=== PATIENT | male | born 1990 | race Caucasian/White ===

== ENCOUNTER 2023-10-03 12:18 | Emergency (ER) | payer OTHER, SELFPAY ==
[2023-10-03 12:20] VITALS: BP 172/106
--- NOTE | 2023-10-03 14:09 | ED.GENMED ---
History of Present Illness
General
Chief Complaint: Musculo-Skeletal Complaint
Time Seen by Provider: 10/03/23 12:30
Travel History
Have you had any contact with someone who has COVID-19?: No
Do you have any symptoms of coronavirus? Fever > 100 degrees, chills, cough, shortness of breath, sore throat, loss of taste or smell, muscle aches, or headache?: No
History of Present Illness
History of Present Illness:
32-year-old male presents to the emergency department for evaluation of left anterior knee pain ongoing for the past several days. 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 States pain is worse in the morning and
gets better throughout the day. Does not take any medication for pain today.
Past History
Past History
ED Past Medical History: None
ED Past Surgical History: None
Social History
Tobacco: Non-smoker
Alcohol: None
Drug: None
Personal: Single
Living: alone
Employment: Employed
Review of Systems
Review of Systems
Allergies reviewed?: Yes
All Other Systems: ROS reviewed and negative except as documented in HPI and ROS
Phy Exam
Physical Exam
Physical Exam:
GEN: Well appearing, NAD, WDWN
HEENT: Oral mucosa moist, no scleral icterus
Cardiac: Regular rate
Lung: No respiratory distress, no tachypnea
MSK: Mild soft tissue swelling of the left anterior knee adjacent to the patellar tendon. There is focal tenderness along the patellar tendon. Left knee range of motion is normal with pain elicited throughout resisted extension and forced flexion,
no joint effusion
Skin: Good color, no pallor or jaundice, no rashes
Neuro: AO x3, moves all extremities freely
Psych: Calm, cooperative
Course
Orders/Labs/Results
Orders:
Orders
10/03/23 12:53
CR Knee - Left 4 Or More View* Urgent
Comment:
Reason For Exam: injury
Vital Signs
Initial and Last Documented VS:
Initial Vital Signs
Temp Pulse Resp BP Pulse Ox
97.9 F 95 16 172/106 96
10/03/23 12:20 10/03/23 12:20 10/03/23 12:20 10/03/23 12:20 10/03/23 12:20
Last Documented Vital Signs
Temp Pulse Resp BP Pulse Ox
97.9 F 95 16 172/106 96
10/03/23 12:20 10/03/23 12:20 10/03/23 12:20 10/03/23 12:20 10/03/23 12:20
MDM/Problems Addressed
MDM/Problems Addressed:
Clinical picture compatible with patellar tendinitis. Recommend patellar tendon strap and high-dose NSAIDs, outpatient orthopedic follow-up if symptoms persist
*Critical Care Note
Total Time (30-74mins, 75-104mins- exclusive of procedures): Not Applicable
ED Attending Note
-
Portions of this chart may have been created with voice recognition software.� Occasional wrong word or��sound alike� substitutions may have occurred due to the inherent limitations of voice recognition software.
Discharge Plan
Departure
Patient Disposition: Home (Routine Discharge)
Date of Disposition: 10/03/23
Time of Disposition: 14:09
Patient with high blood pressure during this ER visit?: No
Discharge Problem:
Patellar tendinitis of left knee
Instructions: Patellar Tendinopathy (DC)
Prescriptions:
New
diclofenac sodium 75 mg tablet,delayed release (DR/EC)
75 mg PO BID PRN (Reason: Pain) Qty: 20 0RF
No Action
Apple Cider Vinegar 450 MG Tab
450 mg PO DAILY
Ashwagandha Root Extract 800 MG Tab
800 mg PO DAILY
multivitamin 1 EACH tablet
1 tab PO DAILY
garlic 1,000 MG capsule
1,000 mg PO DAILY
diclofenac sodium 75 MG tablet,delayed release (DR/EC)
75 mg PO PRN PRN (Reason: pain)
cranberry 500 MG capsule
500 mg PO DAILY
cholecalciferol (vitamin D3) 2,000 UNITS tablet
2,000 units PO DAILY
krill oil 500 MG capsule
500 mg PO DAILY
shawcivhmxk-K7-Wmslsgdhm serr 1 EACH tablet
2 ea PO DAILY
L.acidoph, paracasei,B. lactis 1 EACH capsule
1 ea PO DAILY
elderberry fruit and flower 1 EACH capsule
1 ea PO DAILY
Beet Root 1,000 MG Tab
1,000 mg PO DAILY
Calcium Carb/Mag Ox/Zinc Sulf [Xfd-Blz-Uagt 334-134-5 Mg Tab] 1 EACH Tablet
1 ea PO DAILY
Cbd
2 tab PO DAILY
Patient Comments:
CHEW
Detox Cap 1 CAPSULE Capsule
2 cap PO DAILY
Turmeric Root/Caitlin Root Ext [Turmeric Curcumin-Caitlin Gummy] 1 EACH Tab.Chew
1 ea PO DAILY
albuterol sulfate 1 PUFF HFA aerosol inhaler
2 puff inhalation PRN PRN (Reason: SOB)
Referrals:
Pramod Lara MD [Active] - Follow up in 1 week
Shonna العلي PA [Family Provider] -
Activity Restrictions/Additional Instructions:
Purchase an over the counter 'patellar strap' to use when working
Ice often particularly after work
Interventions
Interventions:
*Risk Screen - Suicide Last Done: 10/03/23 12:20
*General Assessment Last Done: 10/03/23 12:20
*Neglect/Abuse Screening Last Done: 10/03/23 12:20
ED- Fall Risk Assessment Last Done: 10/03/23 14:33
*ED COVID-19 Vaccine History Last Done: 10/03/23 12:20
*Nursing Disposition Last Done: 10/03/23 14:33
ED-Musculoskeletal Assessment Last Done: 10/03/23 14:32
Discharge Date and Time
Discharge Date/Time: 10/03/23 14:34
Print Language: CANADIAN
== END 2023-10-03 14:34 | disposition home or self-care (01) ==
LOC: EMR 12:18
PROVIDERS: EMERGENCY PHYSICIAN Emergency Medicine; FAMILY PHYSICIAN Physician Assistant Medical
DX: M76.52 Patellar tendinitis, left knee (principal)
CPT/HCPCS: 99283; 73564

== ENCOUNTER 2024-09-01 19:29 | Emergency (ER) | payer OTHER, SELFPAY ==
[2024-09-01 19:31] VITALS: BP 163/99
--- NOTE | 2024-09-01 21:06 | ED.SKININJ ---
HPI-Injury
General
Chief Complaint: Skin Surface Trauma
Source: patient and family
Exam Limitations: none
Time Seen by Provider: 09/01/24 20:38
Nursing documentation reviewed up to this point in time: agreed with
History of Present Illness-Injury
Initial Injury comments:
33-year-old male presents with a skin flap laceration to the medial side of the left thumb. He states he got it caught in a garage door tract. Last tetanus shot was 2022. Denies any other injury.
Past History
Past History
ED Past Medical History: None
ED Past Surgical History: None
Social History
Tobacco: Non-smoker
Alcohol: None
Drug: None
Personal: Single
Living: alone
Employment: Employed
Review of Systems
Review of Systems
Allergies reviewed?: Yes
All Other Systems: ROS reviewed and negative except as documented in HPI and ROS
Skin: Reports other (Thumb laceration)
Psychiatric: Reports anxiety
Phy Exam
General Physical Exam
General Presentation: well appearing and no apparent distress
General age: appears stated age
General Skin: warm and dry
General Mental: alert
ENT Exam
ENT Exam: EOMI and neck supple
Neurological Exam
Neurological Exam: alert and oriented x3
Musculoskeletal Exam
Musculoskeletal Exam: full ROM
Skin Exam
Skin Exam: laceration
Psychiatric Exam
Psychiatric Exam: normal mood/affect and anxious
Course
Orders/Labs/Results
Orders:
Orders
09/01/24 21:08
Hand, Left 3 View [CR Hand - Left Min 3 Views] Urgent
Comment:
Reason For Exam: possible fb
09/01/24 21:47
Cephalexin Monohydrate [Keflex] 500 mg PO NOW STA
Vital Signs
Initial and Last Documented VS:
Initial Vital Signs
Temp Pulse Resp BP Pulse Ox
98.3 F 81 18 163/99 98
09/01/24 19:31 09/01/24 19:31 09/01/24 19:31 09/01/24 19:31 09/01/24 19:31
Last Documented Vital Signs
Temp Pulse Resp BP Pulse Ox
98.2 F 76 17 152/87 97
09/01/24 22:16 09/01/24 22:16 09/01/24 22:16 09/01/24 22:16 09/01/24 22:16
Procedures
Laceration Closure
Left Thumb:
Status of Wound: dirty
Size of Wound in cm: 4
Description of Wound Edges: flap-poorly vascularized and macerated
Preparation: cleaned with soap & water
Anesthesia: 1% Lidocaine
Revision/Debridement: routine- no revision and irrigate-direct pressure
Wound exploration: extensive cleaning of contaminated wound, explored to base- no FB, all visible FB removed and no tendon involvement
Type of Closure: single layer closure
Skin Closure Material: 5-0 nylon
Number of sutures: 8
Additional information:
steri strips applied.
copious irrigation to wound
*Critical Care Note
Total Time (30-74mins, 75-104mins- exclusive of procedures): Not Applicable
ED Attending Note
-
Portions of this chart may have been created with voice recognition software.� Occasional wrong word or��sound alike� substitutions may have occurred due to the inherent limitations of voice recognition software.
Discharge Plan
Departure
Patient Disposition: Home (Routine Discharge)
Date of Disposition: 09/01/24
Time of Disposition: 21:49
Patient with high blood pressure during this ER visit?: No
Condition: Good
Discharge Problem:
Laceration of thumb
Instructions: Wound Care (DC), Laceration Repair With Stitches (DC), BLOOD PRESSURE
Prescriptions:
New
cephalexin 500 mg capsule
500 mg PO QID 10 Days Qty: 40 0RF
No Action
Apple Cider Vinegar 450 MG Tab
450 mg PO DAILY
Ashwagandha Root Extract 800 MG Tab
800 mg PO DAILY
multivitamin 1 EACH tablet
1 tab PO DAILY
garlic 1,000 MG capsule
1,000 mg PO DAILY
diclofenac sodium 75 MG tablet,delayed release (DR/EC)
75 mg PO PRN PRN (Reason: pain)
cranberry 500 MG capsule
500 mg PO DAILY
cholecalciferol (vitamin D3) 2,000 UNITS tablet
2,000 units PO DAILY
krill oil 500 MG capsule
500 mg PO DAILY
beinxdprjak-Z4-Fijzgimbz serr 1 EACH tablet
2 ea PO DAILY
L.acidoph,paracasei,B.animalis 1 EACH capsule
1 ea PO DAILY
elderberry fruit and flower 1 EACH capsule
1 ea PO DAILY
Beet Root 1,000 MG Tab
1,000 mg PO DAILY
Calcium Carb/Mag Ox/Zinc Sulf [Gmd-Xkl-Sfvp 334-134-5 Mg Tab] 1 EACH Tablet
1 ea PO DAILY
Cbd
2 tab PO DAILY
Patient Comments:
CHEW
Detox Cap 1 CAPSULE Capsule
2 cap PO DAILY
Turmeric Root/Caitlin Root Ext [Turmeric Curcumin-Caitlin Gummy] 1 EACH Tab.Chew
1 ea PO DAILY
albuterol sulfate 1 PUFF HFA aerosol inhaler
2 puff inhalation PRN PRN (Reason: SOB)
diclofenac sodium 75 mg tablet,delayed release (DR/EC)
75 mg PO BID PRN (Reason: Pain) Qty: 20 0RF
Referrals:
[facility] [Outside]
Augustin Valdez MD [Active] -
Activity Restrictions/Additional Instructions:
Your prescriptions were sent electronically to the pharmacy that you specified. ([facility])
Your tetanus is up to date. Our records show it was last updated 2 years ago in 2022
Sutures should be removed in 5 to 7 days.
Thank You for choosing [facility].
It was a pleasure meeting you and taking part in your care. We hope for your continued healing and wellness.
Please read discharge instructions in their entirety. However, they are for general education and may not describe your exact diagnosis at discharge. Information on your ER visit and medical conditions were discussed with you along with appropriate
follow up information...
If indicated, please take your medications as instructed and indicated on discharge paperwork.
Please schedule a follow up appointment as directed. Call to schedule an appointment
Please return to the emergency department with ANY change in, persisting, or worsening of symptoms. If any of your symptoms do not improve, or persist, or become more severe within 6-12 hours, please return to the emergency department for further
care.
Please return to the emergency department if you develop a headache, neck pain/stiffness, fever greater than 100.4F, chest pain, shortness of breath, persistent nausea, vomiting, slurred speech, difficulty walking, numbness/tingling, weakness, signs
of infection or any other symptoms that are worrisome to you.
If you have any questions or concerns please do not hesitate to call the Hospital at or E-mail me directly at [email or web address]
Interventions
Interventions:
*Risk Screen - Suicide Last Done: 09/01/24 19:31
*General Assessment Last Done: 09/01/24 19:31
*Neglect/Abuse Screening Last Done: 09/01/24 22:16
*ED- Fall Risk Assessment Last Done: 09/01/24 22:16
*ED COVID-19 Vaccine History Last Done: 09/01/24 19:31
*Nursing Disposition Last Done: 09/01/24 22:16
ED-Skin Assessment Last Done: 09/01/24 20:23
Discharge Date and Time
Discharge Date/Time: 09/01/24 22:19
Print Language: MACEDONIAN
[2024-09-01] MEDS: KEFLEX 500 MG PO (22:15)
[2024-09-01 22:16] VITALS: BP 152/87
== END 2024-09-01 22:19 | disposition home or self-care (01) ==
LOC: EMR 19:29
PROVIDERS: EMERGENCY PHYSICIAN Student in an Organized Health Care Education/Training Program
DX: S61.022A Laceration with foreign body of left thumb without damage to nail, initial encounter (principal); W23.0XXA Caught, crushed, jammed, or pinched between moving objects, initial encounter; J45.909 Unspecified asthma, uncomplicated
CPT/HCPCS: 12042; 99283; 73130

== ENCOUNTER 2024-09-14 17:27 | Emergency (ER) | payer OTHER, SELFPAY ==
[2024-09-14 17:36] VITALS: BP 138/93
[2024-09-14] MEDS: KEFLEX 500 MG PO (18:12)
--- NOTE | 2024-09-14 19:18 | ED.GENMED ---
History of Present Illness
General
Chief Complaint: Wound Check/Suture Removal
Source: patient
Exam Limitations: none
Time Seen by Provider: 09/14/24 17:53
Nursing documentation reviewed up to this point in time: agreed with
History of Present Illness
History of Present Illness:
Patient to ED for eval of left thumb. He was seen in [facility] 09/01 for laceration repair to thumb. He states that the laceration site became swelling and sutures tore thru skin edge so he removed them. Now wound is swollen and gaping. NO discharge.
NO erythema. Here for wound check.
Past History
Past History
ED Past Medical History: None
ED Past Surgical History: None
Social History
Tobacco: Non-smoker
Alcohol: None
Drug: None
Personal: Single
Living: alone
Employment: Employed
Review of Systems
Review of Systems
Allergies reviewed?: Yes
All Other Systems: ROS reviewed and negative except as documented in HPI and ROS
Constitutional: Reports no symptoms
Musculoskeletal: Reports no symptoms
Skin: Reports other (wound dehiscence left distal thumb sutured laceration)
Neurological: Reports no symptoms
Psychiatric: Reports no symptoms
Phy Exam
General Physical Exam
General Presentation: well appearing and no apparent distress
General age: appears stated age
General Skin: warm and dry
General Habitus: normal
General Mental: alert
Musculoskeletal Exam
Musculoskeletal Exam: full ROM and neuro vasc intact
Skin Exam
Skin Exam: normal color, warm/dry, no rash and other (wound dehisence left distal sutured laceration. No redness or discharge. +swelling. No pain. Neurovasc. intact. Continue daily wound care, placed on keflex prophylactially)
Psychiatric Exam
Psychiatric Exam: normal mood/affect
Course
Orders/Labs/Results
Orders:
Orders
09/14/24 17:57
Cephalexin Monohydrate [Keflex] 500 mg PO NOW STA
Vital Signs
Initial and Last Documented VS:
Initial Vital Signs
Temp Pulse Resp BP Pulse Ox
98.5 F 75 16 138/93 98
09/14/24 17:36 09/14/24 17:36 09/14/24 17:36 09/14/24 17:36 09/14/24 17:36
Last Documented Vital Signs
Temp Pulse Resp BP Pulse Ox
98.5 F 75 16 138/93 98
09/14/24 17:36 09/14/24 17:36 09/14/24 17:36 09/14/24 17:36 09/14/24 17:36
*Critical Care Note
Total Time (30-74mins, 75-104mins- exclusive of procedures): Not Applicable
Update Note
Update Note:
Patient to ED for eval of wound dehiscence left distal thumb. Sutures placed on 09/01 but he states the skin edges tore away from sutures. He removed the sutures on own. Presnets today with swelling to wound site. No redeness or discharge. Will
continue daily wound care and continue to observe. Follow up with PCP. Placed on Keflex prophylactically. Given instructions on s/s to return to ED and he is agreeable to plan.
ED Attending Note
-
Portions of this chart may have been created with voice recognition software.� Occasional wrong word or��sound alike� substitutions may have occurred due to the inherent limitations of voice recognition software.
Discharge Plan
Departure
Patient Disposition: Home (Routine Discharge)
Date of Disposition: 09/14/24
Time of Disposition: 17:58
Patient with high blood pressure during this ER visit?: No
Condition: Good
Covid-19: Not Applicable
Discharge Problem:
Dehiscence of laceration wound
Instructions: Wound Care (DC), Wound Dehiscence (DC)
Prescriptions:
New
cephalexin 500 mg capsule
500 mg PO BID 10 Days Qty: 20 0RF
No Action
Apple Cider Vinegar 450 MG Tab
450 mg PO DAILY
Ashwagandha Root Extract 800 MG Tab
800 mg PO DAILY
multivitamin 1 EACH tablet
1 tab PO DAILY
garlic 1,000 MG capsule
1,000 mg PO DAILY
diclofenac sodium 75 MG tablet,delayed release (DR/EC)
75 mg PO PRN PRN (Reason: pain)
cranberry 500 MG capsule
500 mg PO DAILY
cholecalciferol (vitamin D3) 2,000 UNITS tablet
2,000 units PO DAILY
krill oil 500 MG capsule
500 mg PO DAILY
lvdditoplgi-A3-Yrqztjdor serr 1 EACH tablet
2 ea PO DAILY
L.acidoph,paracasei,B.animalis 1 EACH capsule
1 ea PO DAILY
elderberry fruit and flower 1 EACH capsule
1 ea PO DAILY
Beet Root 1,000 MG Tab
1,000 mg PO DAILY
Calcium Carb/Mag Ox/Zinc Sulf [Ogh-Utt-Bark 334-134-5 Mg Tab] 1 EACH Tablet
1 ea PO DAILY
Cbd
2 tab PO DAILY
Patient Comments:
CHEW
Detox Cap 1 CAPSULE Capsule
2 cap PO DAILY
Turmeric Root/Caitlin Root Ext [Turmeric Curcumin-Caitlin Gummy] 1 EACH Tab.Chew
1 ea PO DAILY
albuterol sulfate 1 PUFF HFA aerosol inhaler
2 puff inhalation PRN PRN (Reason: SOB)
diclofenac sodium 75 mg tablet,delayed release (DR/EC)
75 mg PO BID PRN (Reason: Pain) Qty: 20 0RF
cephalexin 500 mg capsule
500 mg PO QID 10 Days Qty: 40 0RF
Activity Restrictions/Additional Instructions:
Return to the emergency department immediately for any changes in/worsening of your symptoms
Interventions
Interventions:
*Risk Screen - Suicide Last Done: 09/14/24 17:36
*General Assessment Last Done: 09/14/24 17:36
*Neglect/Abuse Screening Last Done: 09/14/24 17:36
*ED- Fall Risk Assessment Last Done: 09/14/24 17:36
*ED COVID-19 Vaccine History Last Done: 09/14/24 17:36
*Nursing Disposition Last Done: 09/14/24 18:17
ED-Skin Assessment Last Done: 09/14/24 18:14
Discharge Date and Time
Discharge Date/Time: 09/14/24 18:17
Print Language: DIVEHI
== END 2024-09-14 18:17 | disposition home or self-care (01) ==
LOC: EMR 17:27
PROVIDERS: EMERGENCY PHYSICIAN Student in an Organized Health Care Education/Training Program; FAMILY PHYSICIAN Physician Assistant Medical
DX: T81.30XA Disruption of wound, unspecified, initial encounter (principal); Y92.9 Unspecified place or not applicable
CPT/HCPCS: 99282